=== PATIENT | female | born 1960 | race Caucasian/White ===

== ENCOUNTER → 2016-05-25 | Outpatient (CLI) | payer BC ==
[~2016-05-25] MED LIST: CALCIUM 600MG+D1 TAB PO; CLONAZEPAM PO; GLUCOSAMINE & C1 CA1 PO; NOLVADEX 1010 MG/TAB PO; SONATA PO; [UNRECOGNIZED DRUG - OTHER] PO
== END ==
LOC: MC.RAD 07:40
DX: Z12.31 Encounter for screening mammogram for malignant neoplasm of breast (principal); D24.2 Benign neoplasm of left breast; D24.1 Benign neoplasm of right breast; Z85.3 Personal history of malignant neoplasm of breast

== ENCOUNTER 2016-08-01 00:54 | Emergency (ER) | payer BC ==
[~2016-08-01] VITALS: Ht 154.9 cm; Wt 86.4 kg
[~2016-08-01 00:54] MED LIST changes: -CALCIUM 600MG+D1 TAB PO; -GLUCOSAMINE & C1 CA1 PO
[2016-08-01 01:00] VITALS: TEMP 98.4
[2016-08-01] MEDS ORDERED: CALCIUM 600MG+D1 TAB PO (01:06)
[2016-08-01] MEDS ORDERED: GLUCOSAMINE & C1 CA1 PO (01:06)
[2016-08-01 01:25] LABS: BASO % 0.3 % (0.0-2.0); EOS # 0.1 (0.0-0.7); EOS % 1.6 % (0-4.0); GRAN # 4.8 (1.4-6.5); GRAN % 54.4 % (42.2-75.2); HEMATOCRIT 40.2 % (37.0-47.0); LYMPH # 3.4 (1.2-3.4); LYMPH % 38.7 % (20.0-51.0); MEAN CELL VOLUME 89 fl (80.0-100.0); MEAN CORPUSCULAR HEMOGLOBIN 29 pg (27.0-31.0); MEAN CORPUSCULAR HGB CONC 32 g/dl (33.0-37.0); MEAN PLATELET VOLUME 9.4 fl (7.4-10.4); MONO # 0.4 (0.1-0.6); MONO % 4.3 % (1.7-9.3); PLATELET COUNT 341 K/mm3 (130-400); RED BLOOD COUNT 4.54 M/mm3 (4.10-5.30); REDCELL DISTRIBUTION WIDTH-CV 13.7 % (11.5-14.5); WHITE BLOOD COUNT 8.8 K/mm3 (4.8-10.8)
[2016-08-01 01:34] LABS: ALANINE AMINOTRANSFERASE 26 U/L (9-52); ALKALINE PHOSPHATASE 108 U/L (50-136); ANION GAP 13 mmol/L (7-16); BILIRUBIN,TOTAL 0.5 mg/dL (0.0-1.0); BLOOD UREA NITROGEN 16 mg/dL (7-17); CARBON DIOXIDE 23 mmol/L (22-30); CHLORIDE 103 mmol/L (98-107); CREATININE, serum 0.68 mg/dL (0.52-1.25); GLUCOSE 96 mg/dL (74-106); LIPASE 122 U/L (23-300); SODIUM 139 mmol/L (137-145)
[2016-08-01 01:45] LABS: TROPONIN-I < 0.012 ng/mL (0.000-0.034)
[2016-08-01 04:55] VITALS: BP 131/76; PULSE 86
== END 2016-08-01 04:57 | disposition home or self-care (01) ==
LOC: COL.ER 00:54
PROVIDERS: Physician Assistant
DX: R07.9 Chest pain, unspecified (principal); R11.0 Nausea; K21.9 Gastro-esophageal reflux disease without esophagitis; J06.9 Acute upper respiratory infection, unspecified; Z85.3 Personal history of malignant neoplasm of breast; F32.9 Major depressive disorder, single episode, unspecified

== ENCOUNTER → 2017-06-13 | Outpatient (CLI) | payer BC ==
[~2017-06-13] MED LIST changes: +CALCIUM 600MG+D1 TAB PO; +GLUCOSAMINE & C1 CA1 PO
== END ==
LOC: MC.RAD 10:16
DX: Z12.31 Encounter for screening mammogram for malignant neoplasm of breast (principal); Z85.3 Personal history of malignant neoplasm of breast; Z92.3 Personal history of irradiation; Z90.11 Acquired absence of right breast and nipple

== ENCOUNTER → 2018-06-16 | Outpatient (CLI) | payer BC | LOC: MC.RAD 07:30 | DX: N60.02 Solitary cyst of left breast (principal); N64.59 Other signs and symptoms in breast; Z85.3 Personal history of malignant neoplasm of breast; Z98.890 Other specified postprocedural states | CPT/HCPCS: G0279 ==

== ENCOUNTER → 2019-08-22 | Outpatient (CLI) | payer BC | LOC: MC.RAD 17:20 | DX: Z12.31 Encounter for screening mammogram for malignant neoplasm of breast (principal); Z98.890 Other specified postprocedural states; Z92.3 Personal history of irradiation ==

== ENCOUNTER 2020-02-15 15:45 | Outpatient (RCR) | payer BC | END 2020-03-03 | disposition home or self-care (01) | LOC: MKS.ESL.PT | DX: M54.5 Low back pain (principal) | CPT/HCPCS: G0283-GP ==

== ENCOUNTER 2020-03-14 14:54 | Outpatient (RCR) | payer BC | END 2020-06-12 | disposition home or self-care (01) | LOC: MKS.ESL.PT | DX: M46.1 Sacroiliitis, not elsewhere classified (principal) ==

== ENCOUNTER → 2020-09-12 | Outpatient (CLI) | payer BC | LOC: MC.RAD 10:54 | DX: Z12.31 Encounter for screening mammogram for malignant neoplasm of breast (principal) ==

== ENCOUNTER → 2021-10-14 | Outpatient (CLI) | payer BC | LOC: MC.RAD 11:24 | DX: Z12.31 Encounter for screening mammogram for malignant neoplasm of breast (principal) ==

== ENCOUNTER → 2022-12-30 | Outpatient (CLI) | payer BC | LOC: MC.RAD 07:51 | DX: Z12.31 Encounter for screening mammogram for malignant neoplasm of breast (principal) ==